=== PATIENT | female | born 1980 | race Caucasian/White ===

== ENCOUNTER 2016-07-29 10:38 | Emergency (ER) | payer BC ==
[~2016-07-29] VITALS: Ht 152.4 cm; Wt 81.7 kg
[2016-07-29 10:45] VITALS: TEMP 36.8; Ht 152.4 cm; Wt 81.7 kg
[2016-07-29 11:19] VITALS: O2SAT 99
--- NOTE | 2016-07-29 12:32 | EMERGENCY ROOM VISIT NOTE ---
History Report prepared by Willy: Lonny Brown Under the Supervision of: Dr. Adebayo Finch D.O. First contact with patient: 11:59 Chief Complaint: OTHER COMPLAINT Stated Complaint: LOSS OF VISION IN RT EYE,LEFT ARM PAIN,HEADACHE History of Present Illness The patient is a 35 year old female who presents to the Emergency Room with complaints of an episode of loss of right eye vision that occurred upon waking this morning around 0430. She says that the loss of vision was complete, and lasted around a minute. The patient now has complete vision back. She also notes that she has been having intermittent left arm pain today. The arm pain is not there currently. She additionally notes that she had a slight headache, which resolved. She did not take anything for the pain. She states that she has never had anything like this before. The patient notes that a couple weeks ago she felt a little dizzy, but it was not bad. She says that she felt fine last night and did not do anything out of the ordinary. She called her primary care physician this morning, and was told to come here to get a CT scan. She denies any back pain or neck pain. She has no major medical problems. She has a history of a cholecystectomy and . The patient does not use tobacco products or drink alcohol. Her period started a few days ago. Source of History: patient Onset: Around 0430 this morning Position: eye (right) Symptom Intensity: lasted around a minute Quality: other (loss of vision) Timing: other (episode) Associated Symptoms: + headache (gone now), No back pain, No neck pain Note: Associated symptoms: Intermittent left arm pain. Review of Systems See HPI for pertinent positives & negatives. A total of 10 systems reviewed and were otherwise negative. Past Medical & Surgical Medical Problems: (1) HTN (hypertension) Surgical Problems: (1) History of cholecystectomy (2) Hx of section Family History Cancer Gallbladder disease Heart disease Hypertension Stroke Social History Smoking Status: Never Smoker Smokeless Tobacco Use: No Alcohol Use: none Marital Status: Housing Status: lives with family Occupation Status: employed Current/Historical Medications No Active Prescriptions or Reported Meds Allergies Coded Allergies: Sumatriptan (Unverified Allergy, Unknown, HIVES, THROAT SWELLS , 07/29/16) Uncoded Allergies: COLD TEMP (Allergy, Unknown, HAS VERY SENSITIVE REACTION TO LOW TEMPITURES , 07/29/16) Physical Exam Vital Signs Date Time Temp Pulse Resp B/P Pulse Ox O2 Delivery O2 Flow Rate FiO2 07/29/16 14:46 73 18 123/66 97 Room Air 07/29/16 12:50 85 16 126/58 96 07/29/16 12:05 72 07/29/16 11:19 99 Room Air 07/29/16 10:45 36.8 81 16 134/87 99 Room Air Physical Exam GENERAL: Patient is awake, alert, and in no acute distress. Patient is resting comfortably and showing no signs of anxiety EYES: The conjunctivae are clear. The pupils are round and reactive. EARS, NOSE, MOUTH AND THROAT: The nose is without any evidence of any deformity. Mucous membranes are moist tongue is midline NECK: The neck is nontender and supple. RESPIRATORY: Normal respiratory effort is noted there is no evidence of wheezing rhonchi or rales CARDIOVASCULAR: Regular rate and rhythm noted there no murmurs rubs or gallops normal S1 normal S2 GASTROINTESTINAL: The abdomen is soft. Bowel sounds are present in all quadrants. Abdomen is nontender MUSCULOSKELETAL/EXTREMITIES: There is no evidence of gross deformity full range of motion is noted in the hips and shoulders SKIN: There is no obvious evidence of any rash. There are no petechiae, pallor or cyanosis noted. NEUROLOGIC: Patient is awake alert and oriented x3 strength is symmetric patellar reflexes are 2+ bilaterally Medical Decision & Procedures ER Provider Diagnostic Interpretation: Radiology results as stated below per my review and radiologist interpretation: HEAD CT NONCONTRAST CT DOSE: 537.48 mGy.cm HISTORY: Mental status change. Visual loss. EVALUATE ALTERED MENTAL STATUS/WEAKNESS TECHNIQUE: Multiaxial CT images of the head were performed without the use of intravenous contrast. Comparison: None. Findings: The paranasal sinuses and mastoid air cells are clear. The calvarium and skull base are intact. The ventricles and sulci are within normal limits. There is no mass, hematoma, midline shift, or acute infarct. Impression: No acute intracranial abnormality. Electronically signed by: Jesus Alberto Cuevas M.D. 07/29/2016 12:44 PM Dictated Date/Time: 07/29/2016 12:43 PM CHEST ONE VIEW PORTABLE CLINICAL HISTORY: Altered mental status. Weakness. Loss of vision in the right eye. COMPARISON STUDY: No previous studies for comparison. FINDINGS: The cardiac and mediastinal contours are normal. There is no evidence of focal pulmonary consolidation. There is no evidence of failure. No pleural effusions are visualized.[ IMPRESSION: No active disease in the chest. Electronically signed by: Miguel Angel Garza M.D. 07/29/2016 12:28 PM Dictated Date/Time: 07/29/2016 12:28 PM MRI OF THE BRAIN WITHOUT CONTRAST CLINICAL HISTORY: Right vision loss. Headaches. COMPARISON STUDY: Head CT performed earlier today. TECHNIQUE: Utilizing a 1.5 [place] magnet and dedicated coil, multiplanar, multiecho imaging of the brain was performed without IV contrast. FINDINGS: There are no areas of restricted diffusion. No acute intracranial hemorrhage, midline shift or mass effect is present. Ventricular system is normal. Basilar cisterns are patent. Flow-voids for the major intracranial vessels are present. There is no intracranial mass on this unenhanced exam. Orbits are unremarkable on this nondedicated exam. There is a left maxillary sinus mucous retention cyst. No areas of signal abnormality are identified. IMPRESSION: Unremarkable unenhanced MRI of the brain. Electronically signed by: Ac Clements M.D. 07/29/2016 2:30 PM Dictated Date/Time: 07/29/2016 2:26 PM Laboratory Results 07/29/16 11:30 Red Blood Count 4.72, Mean Corpuscular Volume 83.3, Mean Corpuscular Hemoglobin 27.3, Mean Corpuscular Hemoglobin Concent 32.8, Mean Platelet Volume 11.3, Neutrophils (%) (Auto) 62.6, Lymphocytes (%) (Auto) 27.3, Monocytes (%) (Auto) 8.3, Eosinophils (%) (Auto) 1.3, Basophils (%) (Auto) 0.3, Neutrophils # (Auto) 3.76, Lymphocytes # (Auto) 1.64, Monocytes # (Auto) 0.50, Eosinophils # (Auto) 0.08, Basophils # (Auto) 0.02 07/29/16 11:30 Test 07/29/16 11:20 07/29/16 11:30 Urine Color YELLOW Urine Appearance CLOUDY (CLEAR) Urine pH 5.0 (4.5-7.5) Urine Specific [place] 1.027 (1.000-1.030) Urine Protein NEG (NEG) Urine Glucose (UA) NEG (NEG) Urine Ketones NEG (NEG) Urine Occult Blood 3+ (NEG) Urine Nitrite NEG (NEG) Urine Bilirubin NEG (NEG) Urine Urobilinogen NEG (NEG) Urine Leukocyte Esterase LARGE (NEG) Urine WBC (Auto) 10-30 /hpf (0-5) Urine RBC (Auto) 5-10 /hpf (0-4) Urine Hyaline Casts (Auto) 1-5 /lpf (0-5) Urine Epithelial Cells (Auto) >30 /lpf (0-5) Urine Bacteria (Auto) 2+ (NEG) Urine Crystals URIC ACID (NONE PRSENT) White Blood Count 6.01 K/uL (4.8-10.8) Red Blood Count 4.72 M/uL (4.2-5.4) Hemoglobin 12.9 g/dL (12.0-16.0) Hematocrit 39.3 % (37-47) Mean Corpuscular Volume 83.3 fL (80-100) Mean Corpuscular Hemoglobin 27.3 pg (25-34) Mean Corpuscular Hemoglobin Concent 32.8 g/dl (32-36) Platelet Count 287 K/uL (130-400) Mean Platelet Volume 11.3 fL (7.4-10.4) Neutrophils (%) (Auto) 62.6 % Lymphocytes (%) (Auto) 27.3 % Monocytes (%) (Auto) 8.3 % Eosinophils (%) (Auto) 1.3 % Basophils (%) (Auto) 0.3 % Neutrophils # (Auto) 3.76 K/uL (1.4-6.5) Lymphocytes # (Auto) 1.64 K/uL (1.2-3.4) Monocytes # (Auto) 0.50 K/uL (0.11-0.59) Eosinophils # (Auto) 0.08 K/uL (0-0.5) Basophils # (Auto) 0.02 K/uL (0-0.2) RDW Standard Deviation 40.8 fL (36.4-46.3) RDW Coefficient of Variation 13.3 % (11.5-14.5) Immature Granulocyte % (Auto) 0.2 % Immature Granulocyte # (Auto) 0.01 K/uL (0.00-0.02) Erythrocyte Sedimentation Rate 16 mm/hr (0-21) Prothrombin Time 10.4 SECONDS (9.0-12.0) Prothromb Time International Ratio 1.0 (0.9-1.1) Activated Partial Thromboplast Time 27.3 SECONDS (21.0-31.0) Partial Thromboplastin Ratio 1.1 Anion Gap 8.0 mmol/L (3-11) Est Creatinine Clear Calc Drug Dose 84.8 ml/min Estimated GFR () 100.0 Estimated GFR (Non- 86.3 BUN/Creatinine Ratio 15.6 (10-20) Calcium Level 8.8 mg/dl (8.5-10.1) Total Bilirubin 0.3 mg/dl (0.2-1) Direct Bilirubin < 0.1 mg/dl (0-0.2) Aspartate Amino Transf (AST/SGOT) 15 U/L (15-37) Alanine Aminotransferase (ALT/SGPT) 22 U/L (12-78) Alkaline Phosphatase 68 U/L (45-117) Troponin I < 0.015 ng/ml (0-0.045) C-Reactive Protein 0.63 mg/dl (0-0.29) Total Protein 8.2 gm/dl (6.4-8.2) Albumin 4.2 gm/dl (3.4-5.0) Human Chorionic Gonadotropin, Qual NEG (NEG) Laboratory results per my review. ECG Indication: weakness Rate (beats per minute): 69 Rhythm: normal sinus Findings: no ectopy, other (no acute ST segment abnormalities) ED Course 1200: The patient was evaluated in room B3B. A complete history and physical examination were performed. 1329: I reevaluated and updated the patient. 1452: Upon reevaluation, the patient is resting comfortably. I discussed the results and treatment plan with her. She verbalized agreement of the treatment plan. She was discharged home. Medical Decision Prior records/ancillary studies reviewed and summarized above. Nursing notes reviewed. Differential diagnosis: Etiologies such as metabolic, infection, hypo/hyperglycemia, electrolyte abnormalities, cardiac sources, intracerebral event, toxicologic, neurologic, as well as others were entertained. The patient is a 35-year-old female who presented to the emergency department for a transient loss of vision which was monocular. The patient states that she had painless loss of vision in one eye which only lasted "a few minutes". The patient did not have any focal neurologic deficits. She had complete resolution of symptoms. I discussed the patient's laboratory and radiographic studies with her. The patient's MRI did not show any acute abnormality. I did encourage the patient to continue to rest and avoid any strenuous activity. She was encouraged to follow-up with her primary care physician as well as her primary doctor for further evaluation. Otherwise she was also encouraged to return to the emergency department immediately if symptoms change worsen or the need arises. The patient did not appear to have an irregular heartbeat. She had no murmur. She did not have ongoing symptoms. Impression Primary Impression: Transient visual loss of right eye Scribe Attestation The scribe's documentation has been prepared under my direction and personally reviewed by me in its entirety. I confirm that the note above accurately reflects all work, treatment, procedures, and medical decision making performed by me. Departure Information Dispostion Home / Self-Care Prescriptions No Active Prescriptions or Reported Meds Referrals No Doctor, Assigned (PCP) Forms HOME CARE DOCUMENTATION FORM, IMPORTANT VISIT INFORMATION, WORK / SCHOOL INSTRUCTIONS, Work Instructions Patient Instructions My [facility], [facility] Additional Instructions Call your family to schedule a follow-up appointment. You may require further studies to evaluate the cause of the symptoms. Return to the emergency department immediately if symptoms change worsen or the need arises. I would also recommend a follow-up appointment with your eye doctor for further evaluation and a formal retinal exam.
[2016-07-29 12:45] LABS: BASO % 0.3 %; BASO ABS # 0.02 K/uL (0-0.2); COMPLETE YES; EOS % 1.3 %; HEMATOCRIT 39.3 % (37-47); IG% 0.2 %; LYMPH % 27.3 %; LYMPH ABS # 1.64 K/uL (1.2-3.4); MEAN CELL VOLUME 83.3 fL (80-100); MEAN CORPUSCULAR HEMOGLOBIN 27.3 pg (25-34); MEAN CORPUSCULAR HGB CONC 32.8 g/dl (32-36); MEAN PLATELET VOLUME 11.3 fL (7.4-10.4); MONO % 8.3 %; NEUT % 62.6 %; PLATELET COUNT 287 K/uL (130-400); RED BLOOD COUNT 4.72 M/uL (4.2-5.4); WHITE BLOOD COUNT 6.01 K/uL (4.8-10.8)
--- NOTE | 2016-07-29 12:45 | DIAGNOSTIC IMAGING REPORT ---
HEAD CT NONCONTRAST CT DOSE: 537.48 mGy.cm HISTORY: Mental status change. Visual loss. EVALUATE ALTERED MENTAL STATUS/WEAKNESS TECHNIQUE: Multiaxial CT images of the head were performed without the use of intravenous contrast. Comparison: None. Findings: The paranasal sinuses and mastoid air cells are clear. The calvarium and skull base are intact. The ventricles and sulci are within normal limits. There is no mass, hematoma, midline shift, or acute infarct. Impression: No acute intracranial abnormality. Electronically signed by: Jesus Alberto Cuevas M.D. 07/29/2016 12:44 PM Dictated Date/Time: 07/29/2016 12:43 PM
[2016-07-29 12:52] LABS: ALT/SGPT 22 U/L (12-78); AST/SGOT 15 U/L (15-37); BLOOD UREA NITROGEN 13 mg/dl (7-18); BUN/CREATININE RATIO 15.6 (10-20); CALCIUM 8.8 mg/dl (8.5-10.1); CARBON DIOXIDE 24 mmol/L (21-32); CHLORIDE 110 mmol/L (98-107); CREATININE 0.86 mg/dl (0.60-1.20); GLUCOSE 79 mg/dl (70-99); POTASSIUM 3.8 mmol/L (3.5-5.1); SODIUM 142 mmol/L (136-145)
[2016-07-29 12:57] LABS: ALKALINE PHOSPHATASE 68 U/L (45-117); C-REACTIVE PROTEIN 0.63 mg/dl (0-0.29)
[2016-07-29 13:04] LABS: PARTIAL THROMBOPLASTIN RATIO 1.1; PROTHROMBIN TIME (PATIENT) 10.4 SECONDS (9.0-12.0)
[2016-07-29 13:15] LABS: URINE APPEARANCE CLOUDY (CLEAR); URINE BILIRUBIN NEG (NEG); URINE COLOR YELLOW; URINE EPITHELIAL CELL AUTO >30 /lpf (0-5); URINE NITRITE NEG (NEG); URINE SPECIFIC GRAVITY 1.027 (1.000-1.030); UROBILINOGEN NEG (NEG)
[2016-07-29 13:32] LABS: PREG INTERNAL NEGATIVE QC NEG CLEAR BACKGROUND; PREG INTERNAL POSITIVE QC POS CONTROL LINE
[2016-07-29 13:32] LABS: MANUAL MICROSCOPIC REQUIRED? NO; REVIEW REQ? YES
--- NOTE | 2016-07-29 14:31 | DIAGNOSTIC IMAGING REPORT ---
MRI OF THE BRAIN WITHOUT CONTRAST CLINICAL HISTORY: Right vision loss. Headaches. COMPARISON STUDY: Head CT performed earlier today. TECHNIQUE: Utilizing a 1.5 [place] magnet and dedicated coil, multiplanar, multiecho imaging of the brain was performed without IV contrast. FINDINGS: There are no areas of restricted diffusion. No acute intracranial hemorrhage, midline shift or mass effect is present. Ventricular system is normal. Basilar cisterns are patent. Flow-voids for the major intracranial vessels are present. There is no intracranial mass on this unenhanced exam. Orbits are unremarkable on this nondedicated exam. There is a left maxillary sinus mucous retention cyst. No areas of signal abnormality are identified. IMPRESSION: Unremarkable unenhanced MRI of the brain. Electronically signed by: Ac Clements M.D. 07/29/2016 2:30 PM Dictated Date/Time: 07/29/2016 2:26 PM
[2016-07-29 14:46] VITALS: BP 123/66; PULSE 73; O2SAT 97
== END 2016-07-29 15:08 | disposition home or self-care (01) ==
LOC: C.EDB 10:41
DX: H53.121 Transient visual loss, right eye (principal); I10 Essential (primary) hypertension; Z90.49 Acquired absence of other specified parts of digestive tract; Z88.8 Allergy status to other drugs, medicaments and biological substances; Z80.9 Family history of malignant neoplasm, unspecified; Z83.79 Family history of other diseases of the digestive system; Z82.49 Family history of ischemic heart disease and other diseases of the circulatory system; Z82.3 Family history of stroke